=== PATIENT | male | born 1995 | race Caucasian/White ===

== ENCOUNTER 2023-12-30 15:12 | Emergency (ER) | payer OTHER, SELFPAY ==
[2023-12-30 15:30] VITALS: BP 127/91; PULSE 68; RESP 20; TEMP 36.6; O2SAT 100
--- NOTE | 2023-12-30 17:34 | ED.URI ---
HPI - URI/Sore Throat General Chief Complaint: Upper Respiratory Infection Stated Complaint: throat Time Seen by Provider: 12/30/23 17:34 Source: patient, RN notes reviewed and old records reviewed Mode of arrival: ambulatory Limitations: no limitations History of Present Illness HPI Narrative: 28-year-old male presents to [facility] with complaints of sore throat with low grade fever starting yesterday and some episodes of diarrhea. Patient reports that family members are ill with strep throat. He states that he has been taking Ibuprofen for his discomfort. Patient report no difficulty with swallowing or with his breathing,denies any body aches. MD elicited complaint: sore throat and other (diarrhea ) Onset (ago): day(s) (2 of symptoms) Pain scale (0-10): 3 Able to tolerate fluids by mouth: Yes Treatments prior to arrival: ibuprofen Related Data Allergies Allergy/AdvReac Type Severity Reaction Status Date / Time No Known Allergies Allergy Verified 12/30/23 16:01 Review of Systems Review of Systems: CONSTITUTIONAL: Reports malaise, chills, sweats, low grade fever. EYES: Denies visual changes, redness, or discharge. ENT: Reports rhinorrhea, congestion, sinus pain, no otalgia and positive for sore throat. CARDIOVASCULAR: Denies chest pain, palpitations, or edema. RESPIRATORY: Reports no acute cough.? Denies dyspnea. GASTROINTESTINAL: Denies abdominal pain, nausea, vomiting,positive for diarrhea SKIN: Denies rash or itching. MUSCULOSKELETAL: Denies myalgia. NEUROLOGIC: Denies headache. All systems reviewed & are unremarkable except as noted in HPI and below PMFSH Past Medical History Medical History (Updated 01/01/24 @ 11:25 by Moni Ferris NP) No pertinent past medical history Surgical History Surgical History (Updated 01/01/24 @ 11:26 by Moni Ferris NP) History of dental surgery Social History Social History (Updated 01/01/24 @ 11:20 by Moni Ferris NP) Smoking status: Never smoker Alcohol intake: current Alcohol use details: social Substance use type: does not use Living arrangements: with family Gender identity (if verbalized by the patient): Male Comments At time of signature, agree with nursing past medical, surgical, social and family history. There is no relevant family history pertinent to the presenting complaint Exam Narrative: GENERAL: Well-appearing, well-nourished, and in no acute distress. HEAD: Normocephalic EYES: PERRLA, conjunctivae clear ENT: Nares clear, turbinates edematous and erythematous, clear discharge. Mucous membranes moist. TM pearly ayers with dull light reflex bilaterally; no tragal tenderness. Oropharynx erythematous without lesions. Tonsils red and enlarged and without exudate, no drooling, no hoarseness, no trismus, uvula midline. NECK: Supple. lymphadenopathy CHEST: Clear to auscultation, breath sounds equal. No wheezing, rhonchi, rales, or stridor. No respiratory distress, speaks in full sentences.SAO2 100% on room air HEART: Regular rate and rhythm. No murmur heard. SKIN: Warm, dry, no rash. NEURO: Alert and oriented x3. PSYCH: Normal mood and affect Course Course Emergency Course: Patient is aware of diagnosis, understands and agrees to treatment plan.? Anticipatory guidance given.? Patient agrees to follow-up as directed and is aware of reasons to seek care at the emergency department. Portions of this record may have been created with voice recognition software Level of Care: Express Care Visit Vital Signs Vital signs: Vital Signs Temperature 36.6 C 12/30/23 15:30 Pulse Rate 68 12/30/23 15:30 Respiratory Rate 12/30/23 15:30 Blood Pressure 127/91 H 12/30/23 15:30 Pulse Oximetry 100 12/30/23 15:30 Oxygen Delivery Room Air 12/30/23 15:30 Temperature 36.6 C 12/30/23 15:30 Pulse Rate 68 12/30/23 15:30 Respiratory Rate 12/30/23 15:30 Blood Pressure 1
== END 2023-12-30 17:45 | disposition home or self-care (01) ==
PROVIDERS: Emergency Provider Registered Nurse
DX: J02.0 Streptococcal pharyngitis (principal)
CPT/HCPCS: 87880; 99213; G0463